=== PATIENT | female | born 1950 | race Caucasian/White ===

== ENCOUNTER 2017-12-24 05:24 | Inpatient (IN) | payer OTHER ==
--- NOTE | 2017-12-24 09:22 | HP ---
Admitting History and Physical - Admission History of Present Illness: 67 year old woman with enlarging abdominal aortic aneurysm. Growth of > 1 cm over past 18 months with diameter approaching 5 cm. patient requesting repair at this time. No pain. History Source: Patient Limitations to Obtaining History: No Limitations - Past Medical History Cardiovascular: Yes: HTN - Smoking History Smoking history: Former smoker Have you smoked in the past 12 months: No If you are a former smoker, when did you quit?: 2yrs - Alcohol/Substance Use Hx Alcohol Use: Yes (socially) Home Medications - Allergies Allergies/Adverse Reactions: Allergies Allergy/AdvReac Type Severity Reaction Status Date / Time amoxicillin [From Augmentin] Allergy "severe Verified 12/24/17 08:31 nausea" clavulanic acid Allergy "severe Verified 12/24/17 08:31 [From Augmentin] nausea" clindamycin [From Cleocin] Allergy "severe Verified 12/24/17 08:31 nausea" doxycycline Allergy "severe Verified 12/24/17 08:31 nausea" - Home Medications Home Medications: Ambulatory Orders Atenolol [Tenormin -] 50 mg PO DAILY 12/15/17 Atorvastatin Ca [Lipitor] 40 mg PO HS 12/15/17 Biotin 1 mg PO DAILY 12/15/17 Calcium Carbonate [Calcium] 500 mg PO DAILY 12/15/17 Hydrochlorothiazide [Hctz -] 25 mg PO DAILY 12/15/17 Losartan Potassium 50 mg PO DAILY 12/15/17 Multivitamin/Iron/Folic Acid [Centrum Adults Tablet] 1 each PO DAILY 12/15/17 [place]-3 Fatty Acids [[place]-3] 1,000 mg PO DAILY 12/15/17 Family Disease History - Family Disease History Family History: Unremarkable Physical Examination Vital Signs: Vital Signs Temperature 97.7 F 12/24/17 08:34 Pulse Rate 61 12/24/17 08:34 Respiratory Rate 16 12/24/17 08:34 Blood Pressure 155/96 12/24/17 08:34 O2 Sat by Pulse Oximetry (%) 96 12/24/17 08:34 Constitutional: Yes: No Distress Eyes: Yes: WNL HENT: Yes: WNL Neck: Yes: Supple Cardiovascular: Yes: Regular Rate and Rhythm Respiratory: Yes: Regular, CTA Bilaterally Gastrointestinal: Yes: Soft. No: Pulsatile Mass Extremities: Yes: WNL Edema: No Peripheral Pulses WNL: Yes Imaging - Results Cat Scan: Image Reviewed (Infrarenal AAA 4.6 cm with angulated neck) Problem List - Problems (1) AAA (abdominal aortic aneurysm) without rupture Assessment/Plan: Enlarging AAA in otherwise healthy 67 year old. Plan endovascular repair. Risks of surgery including, but not limited to, bleeding, infection, open surgery, renal injury, discussed. Code(s): I71.4 - ABDOMINAL AORTIC ANEURYSM, WITHOUT RUPTURE
[2017-12-24] MEDS ORDERED: MIDAZOLAM HCL 2 MG/2 ML SINGLE DOSE VIAL ONE ×2 (09:42→10:01)
[2017-12-24] MEDS ORDERED: VANCOMYCIN 1,000 MG VIAL (RESTRICTED TO ID ONLY) IVPB ONE (10:00)
[2017-12-24] MEDS ORDERED: PROPOFOL 20 ML ONE ×3 (10:37→11:41)
[2017-12-24] MEDS ORDERED: SUCCINYLCHOLINE CHLORIDE 200 MG/10 ML VIAL ONE (11:09)
--- NOTE | 2017-12-24 12:22 | OP ---
Operative Note - Note: Operative Date: 12/24/17 Pre-Operative Diagnosis: Abdominal aortic aneurysm Operation: Percutaneous endovascular repair of Abdominal Aortic Aneurysm Findings: Infrarenal AAA 4.6 cm. Accessory right renal artery to lower pole covered by graft Completion angiogram with no Type I endoleak Implants: Medtronic Endurant II 25 mm proximal, 10 mm right iliac, 13 mm left iliac Surgeon: Yayo Mosqueda Gear Generator Set Up Operator: Jatinder Savage Anesthesiologist/COURT CRIER: Trina Martinez MD Anesthesia: Fractional Estimated Blood Loss (mls): 150 Operative Report Dictated: Yes
[2017-12-24] MEDS ORDERED: D5-1/2NS+20 MEQ KCL - 20 MEQ/1,000 ML INFUS.BAG IV SCH (12:30)
[2017-12-24] MEDS ORDERED: LACTATED RINGERS SOLUTION 1,000 ML IV SCH (12:30)
--- NOTE | 2017-12-24 13:51 | SURG ---
Surgery Vp Foundation Note Vp Foundation: Jatinder Savage PA-C Date of Service: 12/24/17 Diagnosis: Infrarenal AAA Procedure: Percutaneous endovascular repair of Abdominal Aortic Aneurysm I was present for the entirety of the operative procedure. For further detail, please refer to operative report. Visit type - Case Type Case Type: Scheduled - New patient This patient is new to me today: Yes Date on this admission: 12/24/17
--- NOTE | 2017-12-24 14:54 | OP ---
DATE OF OPERATION: 12/24/2017 SURGEON: Yayo Mosqueda MD SUBSTATION SUPERINTENDENT: CANDIDA Greer PROCEDURE: Percutaneous endovascular repair of abdominal aortic aneurysm with modular stent graft and 2 docking limbs. PREOPERATIVE DIAGNOSIS: Infrarenal abdominal aortic aneurysm. POSTOPERATIVE DIAGNOSIS: Infrarenal abdominal aortic aneurysm. ANESTHESIA: Fractional. ANESTHESIOLOGIST: Trina Martinez MD OPERATIVE FINDINGS: There was an infrarenal abdominal aortic aneurysm with a maximum diameter of 4.6 cm. There was a single renal artery on the left and a main renal artery with an accessory lower pole renal artery on the right. Completion angiogram following stent placement showed no evidence of type I endoleak. There was good flow to both main renal arteries. The lower pole artery on the right was occluded by the stent graft. OPERATIVE PROCEDURE: Following routine patient identification, intravenous sedation was established. Both groins were prepped with ChloraPrep. A time-out was performed. Using real time duplex imaging, the common femoral arteries were identified. One percent lidocaine was infiltrated in the skin and subcutaneous tissues over the right common femoral artery and under ultrasound guidance, it was cannulated above the bifurcation in an area free of atherosclerotic plaque. A Micropuncture wire was passed proximally, a 5-Malaysian sheath exchanged into the vessel over the wire. A [employer] wire was then exchanged through the catheter and advanced into the iliac artery. A 6-Malaysian sheath was then placed. A double Perclose device was placed at the 10 o'clock and 2 o'clock positions, followed by an 8-Malaysian sheath. The Perclose devices were not tightened. The left femoral artery was then cannulated in an identical fashion, and a double Perclose placed as well, with an 8-Malaysian sheath. With the use of a Berenstein catheter, the wire was advanced through the left iliac artery into the abdominal aorta and then to the suprarenal aorta. The wire was advanced proximally and then a marking pigtail catheter advanced over the wire and left at the level of the renal arteries. The wire was removed. A power injector was used to perform angiography with digital technique, to identify the renal arteries and the iliac outflow bilaterally. An angled wire was then advanced proximally through the right femoral sheath with a catheter into the suprarenal aorta. The wire was then exchanged for a Lunderquist wire, which was advanced to the aortic arch. The patient was systemically heparinized. A Medtronic Endurant II stent graft main body with a proximal diameter of 25 mm was then prepared. It was exchanged over the wire in the right femoral artery and advanced under fluoroscopic guidance to the level of the renal arteries. Magnified views with correction of parallax were obtained and digital angiography repeated. With the renal arteries marked, the main body was deployed just distal to both renal arteries, which were at the same level on the angiogram. The graft was opened until the contralateral gate was freed. The top cap was then deployed. The wire was reinserted through the catheter in the left groin and then the pigtail was removed. Using a Platypi catheter, the gate was cannulated and the wire advanced proximally into the suprarenal aorta. The pigtail was replaced and used to spin within the graft to confirm intraluminal placement. An angiogram through the left femoral sheath was then performed to tuan the bifurcation of the iliac arteries. A left iliac extension limb was then exchanged over the wire and advanced and deployed to the bifurcation, with adequate overlap in the stent graft. The distal diameter of the limb was 13 mm. The catheter was removed and a 12-sheath placed over the wire into the iliac artery. The remainder of the main body was then deployed into the right iliac artery. The top cap was recaptured and the catheter was removed. A 16-Malaysian sheath was then advanced over the wire into the iliac artery. The marking catheter was replaced over the wire, and an angiogram through the sheath performed to tuan the bifurcation of the right iliac artery. Following this, a Reliant balloon was used to dilate the stent graft at the proximal neck, all juncture points and both iliac limbs. A completion angiogram was then performed with the power injector, with the above noted findings. No evidence of type I endoleak was seen. The catheters were removed. The sheaths were pulled back, and the Perclose sutures tightened over the wire. When hemostasis was deemed adequate, the wires were removed, and the sutures re-tightened and locked and cut. Both groins were closed in this manner. The subcutaneous tissues were then approximated with devices to seal the arteriotomies. The wires were removed, with further tightening of the sutures and locking of the sutures. The wounds were closed with subcuticular sutures of 4-0 Biosyn sutures and Dermabond glue on the skin. The patient was taken to the recovery area in stable condition. Jeferson ROMERO/[id number]
[2017-12-24] MEDS: ONDANSETRON 4 MG/2 ML VIAL IVPUSH PRN (15:59)
[2017-12-24] MEDS: oxyCODONE HCL 5 MG TABLET PO PRN ×2 (16:04→21:51)
[2017-12-24] MEDS: ACETAMINOPHEN 325 MG TABLET (FP) PO PRN (16:10)
--- NOTE | 2017-12-24 18:06 | CONSULT ---
Consultation: REQUESTING PROVIDER: Dr Mosqueda CONSULT REQUEST: We have been asked to medically evaluate this patient for post/ op abdominal aortic aneurysm repair. HISTORY OF PRESENT ILLNESS: Pt is a 67 y/o F with a pmh HLD and HTN, surgery on right foot, and tubal ligation 30+ years ago. Pt states she underwent an abdominal ultrasound in May of 2017 which revealed a 3.1 cm abdominal aortic aneurysm. Pt then traveled to [place] until October of this year when she underwent a follow up ultrasound which subsequently revealed an expanded diameter of 4.6 cm. Pt endorses she has smoked roughly 1 pack of cigarettes per day since she was 11 years old-quit 2 years ago. Denies cp, sob, crawley, nausea, dizziness, or vomiting. REVIEW OF SYSTEMS: CONSTITUTIONAL: Absent: fever, chills, diaphoresis, generalized weakness, malaise, loss of appetite, weight change HEENT: Absent: rhinorrhea, nasal congestion, throat pain, throat swelling, difficulty swallowing, mouth swelling, ear pain, eye pain, visual changes CARDIOVASCULAR: Absent: chest pain, syncope, palpitations, irregular heart rate, lightheadedness , peripheral edema RESPIRATORY: Absent: cough, shortness of breath, dyspnea with exertion, orthopnea, wheezing, stridor, hemoptysis GASTROINTESTINAL: Absent: abdominal pain, abdominal distension, nausea, vomiting, diarrhea, constipation, melena, hematochezia GENITOURINARY: Absent: dysuria, frequency, urgency, hesitancy, hematuria, flank pain, genital pain MUSCULOSKELETAL: C/o back pain. No pain at site of surgery. SKIN: abdominal incision site covered by bandage. HEMATOLOGIC/IMMUNOLOGIC: Absent: easy bleeding, easy bruising, lymphadenopathy, frequent infections ENDOCRINE: Absent: unexplained weight gain, unexplained weight loss, heat intolerance, cold intolerance NEUROLOGIC: Absent: headache, focal weakness or paresthesias, dizziness, unsteady gait, seizure, mental status changes, bladder or bowel incontinence PSYCHIATRIC: Absent: anxiety, depression, suicidal or homicidal ideation, hallucinations. PHYSICAL EXAMINATION Vital Signs - 24 hr 12/24/17 12/24/17 12/24/17 08:34 12:00 12:15 Temperature 97.7 F 97.2 F L Pulse Rate 61 45 L 44 L Respiratory 16 14 18 Rate Blood Pressure 155/96 136/96 150/72 O2 Sat by Pulse 96 94 L 96 Oximetry (%) 12/24/17 12/24/17 12/24/17 12:30 12:45 13:00 Temperature Pulse Rate 44 L 47 L 47 L Respiratory 18 16 18 Rate Blood Pressure 153/76 145/83 140/77 O2 Sat by Pulse 96 97 97 Oximetry (%) 12/24/17 12/24/17 12/24/17 13:15 13:30 13:45 Temperature Pulse Rate 46 L 46 L 45 L Respiratory 18 18 18 Rate Blood Pressure 127/74 126/65 122/60 O2 Sat by Pulse 99 98 98 Oximetry (%) 12/24/17 12/24/17 12/24/17 14:00 14:15 14:30 Temperature 98.0 F Pulse Rate 45 L 50 L 82 Respiratory 18 16 16 Rate Blood Pressure 124/74 130/99 146/72 O2 Sat by Pulse 99 98 95 Oximetry (%) 12/24/17 12/24/17 12/24/17 14:35 15:00 15:33 Temperature 7.5 F L 97.5 F L Pulse Rate 50 L 61 Respiratory 16 16 Rate Blood Pressure 139/90 149/84 O2 Sat by Pulse 97 Oximetry (%) 12/24/17 16:00 Temperature Pulse Rate 53 L Respiratory 16 Rate Blood Pressure 130/90 O2 Sat by Pulse Oximetry (%) GENERAL: Awake, alert, and fully oriented, in no acute distress. HEAD: Normal with no signs of trauma. EYES: Pupils equal, round and reactive to light, extraocular movements intact, sclera anicteric, conjunctiva clear. No lid lag. EARS, NOSE, THROAT: Ears normal, nares patent, oropharynx clear without exudates. Moist mucous membranes. NECK: Normal range of motion, supple without lymphadenopathy, JVD, or masses. LUNGS: Breath sounds equal, clear to auscultation bilaterally. No wheezes, and no crackles. No accessory muscle use. HEART: Regular rate and rhythm, normal S1 and S2 without murmur, rub or gallop. ABDOMEN: Soft, nontender, not distended, normoactive bowel sounds, no guarding, no rebound, no masses. No hepatomegaly or splenomegaly. MUSCULOSKELETAL: Normal range of motion at all joints. No bony deformities or tenderness. No CVA tenderness. UPPER EXTREMITIES: 2+ pulses, warm, well-perfused. No cyanosis. No clubbing. Cap refill <2 seconds. No peripheral edema. LOWER EXTREMITIES: 2+ pulses, warm, well-perfused. No calf tenderness. No peripheral edema. NEUROLOGICAL: Cranial nerves II-XII intact. Normal speech. Normal gait. PSYCHIATRIC: Cooperative. Good eye contact. Appropriate mood and affect. SKIN: Warm, dry, normal turgor, no rashes or lesions noted. Laboratory Results - last 24 hr 12/24/17 12/24/17 08:00 08:27 Blood Type O POSITIVE O POSITIVE Antibody Screen Negative Active Medications Generic Name Dose Route Start Last Admin Trade Name Freq PRN Reason Stop Dose Admin Acetaminophen 325 mg 12/24/17 12:42 12/24/17 16:10 Tylenol - PO 325 mg Q4H PRN Administration PAIN LEVEL 1-5 Atenolol 50 mg 12/25/17 10:00 Tenormin - PO DAILY [facility] Atorvastatin Calcium 40 mg 12/24/17 22:00 Lipitor - PO HS LORRI Fentanyl 50 mcg 12/24/17 12:17 12/24/17 13:45 Sublimaze Injection - IVPUSH 25 mcg [id number] PRN Administration PAIN-PACU ORDER X 4 DOSES ONLY Heparin Sodium (Porcine) 5,000 unit 12/24/17 22:00 Heparin - SQ BID LORRI Lactated Ringer's 1,000 mls @ 75 mls/hr 12/24/17 12:30 12/24/17 17:12 Lactated Ringers Solution IV Not Given ASDIR [facility] Potassium Chloride/Dextrose/Sod Cl 20 meq in 1,000 mls @ 100 mls/hr 12/24/17 12:30 12/24/17 14:35 D5-1/2ns+20 Meq Kcl - IV 100 mls/hr ASDIR LORRI Administration Losartan Potassium 50 mg 12/25/17 10:00 Cozaar - PO DAILY LORRI Ondansetron HCl 4 mg 12/24/17 12:17 12/24/17 15:59 Zofran Injection IVPUSH 4 mg Q6H PRN Administration NAUSEA AND/OR VOMITING Oxycodone HCl 5 mg 12/24/17 12:41 12/24/17 16:04 Roxicodone - PO 5 mg Q4H PRN Administration PAIN LEVEL 1-5 ASSESSMENT/PLAN: POD # 0 s/p Percutaneous endovascular repair of Abdominal Aortic Aneurysm Pain- Oxycodone 5 mg po q4h prn Acetaminophen 325 mg po q4h Nausea: Zofran Injection 4 mg iv push q6h HTN, HLD: Atorvastatin 40 mg po hs Losartan 50 mg po daily Atenolol 50 mg po daily Early ambulation FEN LR's 1,000 IV Monitor electrolytes Liquid Diet DVT ppx Heparin 5,000 U SQ BID SCD's Dispo: We will continue to follow the patient. Thank you for this consultative opportunity. Visit type - Emergency Visit Emergency Visit: No - New Patient This patient is new to me today: Yes Date on this admission: 12/24/17 - Critical Care Critical Care patient: Yes Total Critical Care Time (in minutes): 35 Critical Care Statement: The care of this patient involved high complexity decision making to prevent further life threatening deterioration of the patient 's condition and/or to evaluate & treat vital organ system(s) failure or risk of failure.
[2017-12-24] MEDS: HEPARIN NA (PORCINE) 5,000 UNITS/ML 1ML VIAL SQ SCH (21:52)
[2017-12-24] MEDS ORDERED: ATORVASTATIN CA 40 MG TABLET (FP) PO SCH (22:00)
[2017-12-25] MEDS: oxyCODONE HCL 5 MG TABLET PO PRN ×4 (01:44→22:24)
[2017-12-25 06:36] LABS: HEMATOCRIT 35.3 % (32.4-45.2); HEMOGLOBIN 12.2 GM/dL (10.7-15.3); MCH 33.3 pg (25.7-33.7); MCHC 34.5 g/dl (32.0-36.0); MEAN CELL VOLUME 96.6 fl (80-96); MEAN PLT VOLUME 9.6 fl (7.5-11.1); PLATELET COUNT 133 K/MM3 (134-434); RBC 3.66 M/mm3 (3.60-5.2); RDW 12.4 % (11.6-15.6); WHITE BLOOD COUNT 9.2 K/mm3 (4.0-10.0)
[2017-12-25 06:56] LABS: CHLORIDE 105 mmol/L (98-107); POTASSIUM 4.1 mmol/L (3.5-5.1); SODIUM 140 mmol/L (136-145)
[2017-12-25 07:00] LABS: ANION GAP 5 (8-16); BLOOD UREA NITROGEN 6 mg/dL (7-18); CALCIUM 8.2 mg/dL (8.5-10.1); CO2 30 mmol/L (21-32); CREATININE 0.5 mg/dL (0.55-1.02); GLUCOSE,RANDOM 119 mg/dL (74-106); MAGNESIUM 1.8 mg/dL (1.8-2.4); PHOSPHOROUS 2.5 mg/dL (2.5-4.9)
[2017-12-25] MEDS: ACETAMINOPHEN 325 MG TABLET (FP) PO PRN ×2 (07:38→22:25)
[2017-12-25] MEDS: ONDANSETRON 4 MG/2 ML VIAL IVPUSH PRN (07:43)
--- NOTE | 2017-12-25 08:57 | PN ---
Progress Note (short form) - Note Progress Note: C/o back pain VSS Abd soft, non-tender Groins dry, no swelling Feet warm, palpable DP Labs WNL Imp: S/p EVAR, no major issues. Plan: OOB D/C Diogo naik-goldy Advance diet and activity Transfer to floor Problem List - Problems (1) AAA (abdominal aortic aneurysm) without rupture Code(s): I71.4 - ABDOMINAL AORTIC ANEURYSM, WITHOUT RUPTURE
--- NOTE | 2017-12-25 09:12 | PN ---
Progress Note (short form) - Note Progress Note: Anesthesia POD#1 S/P Endovascular AAA Repair under MAC VSS,Started oral food,nausea yesterday, got better after medication. No other complications seen. Lise Kennedy MD.
[2017-12-25] MEDS ORDERED: LOSARTAN POTASSIUM 50 MG TABLET (FP) PO SCH (10:00)
[2017-12-25] MEDS: HEPARIN NA (PORCINE) 5,000 UNITS/ML 1ML VIAL SQ SCH ×2 (10:00→22:00)
--- NOTE | 2017-12-25 11:19 | PN ---
Physical Exam: SUBJECTIVE: Patient seen and examined today in icu. POD #1. Pt c/o back pain, headache, and nausea. Debies CP or SOB. OBJECTIVE: Vital Signs Period Temp Pulse Resp BP Sys/Barraza Pulse Ox Last 24 Hr 97.2 F-98.9 F 44-82 14-21 110-153/60-99 94-99 GENERAL: AAOx3 HEAD: Normal with no signs of trauma. EYES: EOMI ENT: MMM NECK: Trachea midline, full range of motion, supple. LUNGS: CTA B/L HEART: RRR ABDOMEN: ND, NT, No HSM. EXTREMITIES: No CCE NEUROLOGICAL: no neuro deficits PSYCH: Normal mood, normal affect. SKIN: bruising lower abdomen b/l Laboratory Results - last 24 hr 12/25/17 12/25/17 05:30 05:30 WBC 9.2 RBC 3.66 Hgb 12.2 Hct 35.3 D MCV 96.6 H MCH 33.3 MCHC 34.5 RDW 12.4 Plt Count 133 L D MPV 9.6 Sodium 140 Potassium 4.1 Chloride 105 Carbon Dioxide 30 Anion Gap 5 L BUN 6 L Creatinine 0.5 L Creat Clearance w eGFR > 60 Random Glucose 119 H Calcium 8.2 L Phosphorus 2.5 Magnesium 1.8 Active Medications Generic Name Dose Route Start Last Admin Trade Name Freq PRN Reason Stop Dose Admin Acetaminophen 325 mg 12/24/17 12:42 12/25/17 07:38 Tylenol - PO 325 mg Q4H PRN Administration PAIN LEVEL 1-5 Atenolol 50 mg 12/25/17 10:00 Tenormin - PO DAILY [facility] Atorvastatin Calcium 40 mg 12/24/17 22:00 12/24/17 21:52 Lipitor - PO 40 mg HS LORRI Administration Fentanyl 50 mcg 12/24/17 12:17 12/24/17 13:45 Sublimaze Injection - IVPUSH 25 mcg [id number] PRN Administration PAIN-PACU ORDER X 4 DOSES ONLY Heparin Sodium (Porcine) 5,000 unit 12/24/17 22:00 12/24/17 21:52 Heparin - SQ 5,000 unit BID LORRI Administration Losartan Potassium 50 mg 12/25/17 10:00 Cozaar - PO DAILY [facility]RI Oxycodone HCl 5 mg 12/24/17 12:41 12/25/17 07:36 Roxicodone - PO 5 mg Q4H PRN Administration PAIN LEVEL 1-5 ASSESSMENT/PLAN: POD #1: abdominal aortic aneurysm repair. Pain- Oxycodone 5 mg po q4h prn Acetaminophen 325 mg po q4h Nausea: Zofran Injection 4 mg iv push q6h HTN, HLD: Atorvastatin 40 mg po hs Losartan 50 mg po daily Atenolol 50 mg po daily Gaines catheter d/c A-Line d/c Diet advanced Transfer to floor DVT ppx Heparin 5,000 U SQ BID SCD's FEN No fluids Monitor electrolytes Regular diet Dispo Pt being transferred to med-surg. Visit type - Emergency Visit Emergency Visit: No - New Patient This patient is new to me today: Yes Date on this admission: 12/25/17 - Critical Care Critical Care patient: Yes Total Critical Care Time (in minutes): 35 Critical Care Statement: The care of this patient involved high complexity decision making to prevent further life threatening deterioration of the patient 's condition and/or to evaluate & treat vital organ system(s) failure or risk of failure.
[2017-12-25] MEDS: ATENOLOL 50 MG TABLET (FP) PO SCH ×2 (11:32→12:00)
--- NOTE | 2017-12-25 11:33 | PN ---
Teaching Attending Note Name of Resident: Ramy Gilbert ATTENDING PHYSICIAN STATEMENT I saw and evaluated the patient. I reviewed the resident's note and discussed the case with the resident. I agree with the resident's findings and plan as documented. SUBJECTIVE: Pt seen and examined in the ICU. s/p EVAR. Some headache and nausea overnight improved with meds. Back pain also improved with meds. OBJECTIVE: Vital Signs Period Temp Pulse Resp BP Sys/Barraza Pulse Ox Last 24 Hr 97.2 F-98.9 F 44-82 14-21 110-153/60-99 94-99 Intake & Output 12/22/17 12/23/17 12/24/17 12/25/17 23:59 23:59 23:59 23:59 Intake Total 1940 1690 Output Total 1540 700 Balance 400 990 Weight 68.039 kg 69.127 kg Gen: NAD at rest Heart: RRR Lung: decreased breath sounds at the bases Abd: soft, nontender Ext: no edema, groin ecchymosis CBC, BMP 12/25/17 05:30 12/25/17 05:30 Active Medications Acetaminophen (Tylenol -) 325 mg PO Q4H PRN PRN Reason: PAIN LEVEL 1-5 Last Admin: 12/25/17 07:38 Dose: 325 mg Atenolol (Tenormin -) 50 mg PO DAILY [facility] Atorvastatin Calcium (Lipitor -) 40 mg PO HS [facility] Last Admin: 12/24/17 21:52 Dose: 40 mg Fentanyl (Sublimaze Injection -) 50 mcg IVPUSH [id number] PRN PRN Reason: PAIN-PACU ORDER X 4 DOSES ONLY Last Admin: 12/24/17 13:45 Dose: 25 mcg Heparin Sodium (Porcine) (Heparin -) 5,000 unit SQ BID LORRI Last Admin: 12/24/17 21:52 Dose: 5,000 unit Losartan Potassium (Cozaar -) 50 mg PO DAILY [facility] Oxycodone HCl (Roxicodone -) 5 mg PO Q4H PRN PRN Reason: PAIN LEVEL 1-5 Last Admin: 12/25/17 07:36 Dose: 5 mg ASSESSMENT AND PLAN: AAA s/p EVAR POD 1 HTN Hyperlipidemia - pain control - monitor H/H - incentive spirometry - DVT prophylaxis - can monitor on floor
[2017-12-25] MEDS ORDERED: ONDANSETRON *ODT* 4 MG TABLET SL PRN (14:28)
[2017-12-25] MEDS ORDERED: ONDANSETRON 4 MG/2 ML VIAL ONE (14:33)
[2017-12-25] MEDS: DRONABINOL 2.5 MG CAPSULE PO SCH (15:08)
--- NOTE | 2017-12-25 18:43 | PN ---
Progress Note (short form) - Note Progress Note: Pt spike fever of 101.9 and complaining of worsening back pain. stat CBC, CMP, Blood cultures, Urine cultures, CXR One dose of Vancomycin 1000mg IV and a dose of azactam 1gm IV given after cultures taken Bedside u/s performed, partial fast exam, both flanks viewed with no gross abnormalities to any local structures. No gross blood accumulation noted. Pain is most likely caused by migration of post-op edema to the flanks in addition to chronic back pain exacerbated by positioning during procedure. Discussed with Vascular surgery, awaiting results of CMP, if creatinine normal, will order stat CTA Abdomen and Pelvis.
[2017-12-25] MEDS ORDERED: ACETAMINOPHEN 1000 MG/100 ML VIAL (NON FORMULARY) IVPB ONE (19:00)
[2017-12-25] MEDS ORDERED: AZTREONAM 1 GM in DEXTROSE 5%-WATER - 50 ML IVPB ONE (19:00)
[2017-12-25] MEDS ORDERED: VANCOMYCIN 1,000 MG in DEXTROSE 5%-WATER - 250 ML IVPB ONE (19:00)
[2017-12-25 19:38] LABS: BASO % 0.3 % (0-2.0); EOS % 0.4 % (0-4.5); HEMATOCRIT 35.8 % (32.4-45.2); HEMOGLOBIN 12.1 GM/dL (10.7-15.3); LYMPH % 13.7 % (8-40); MCH 32.5 pg (25.7-33.7); MCHC 33.9 g/dl (32.0-36.0); MEAN CELL VOLUME 95.9 fl (80-96); MONO % 9.8 % (3.8-10.2); NEUT % 75.8 % (42.8-82.8); PLATELET COUNT 126 K/MM3 (134-434); RBC 3.74 M/mm3 (3.60-5.2); RDW 12.8 % (11.6-15.6); WHITE BLOOD COUNT 8.7 K/mm3 (4.0-10.0)
[2017-12-25 20:41] LABS: ANION GAP 9 (8-16); BLOOD UREA NITROGEN 5 mg/dL (7-18); CALCIUM 8.1 mg/dL (8.5-10.1); CHLORIDE 105 mmol/L (98-107); CO2 25 mmol/L (21-32); CREATININE 0.6 mg/dL (0.55-1.02); GLUCOSE,RANDOM 134 mg/dL (74-106); POTASSIUM 3.5 mmol/L (3.5-5.1); SODIUM 139 mmol/L (136-145)
[2017-12-25 20:50] LABS: ALBUMIN 2.9 g/dl (3.4-5.0); ALK PHOS 58 U/L (45-117); ANION GAP 10 (8-16); BILIRUBIN,TOTAL 0.8 mg/dL (0.2-1.0); BLOOD UREA NITROGEN 5 mg/dL (7-18); CALCIUM 8.1 mg/dL (8.5-10.1); CHLORIDE 105 mmol/L (98-107); CO2 25 mmol/L (21-32); CREATININE 0.6 mg/dL (0.55-1.02); GLUCOSE,RANDOM 133 mg/dL (74-106); POTASSIUM 3.5 mmol/L (3.5-5.1); SGOT/AST 20 U/L (15-37); SGPT/ALT 23 U/L (12-78); SODIUM 140 mmol/L (136-145); TOT PROT 5.6 g/dl (6.4-8.2)
[2017-12-25] MEDS: ATORVASTATIN CA 40 MG TABLET (FP) PO SCH (22:00)
[2017-12-25] MEDS ORDERED: oxyCODONE HCL 5 MG TABLET PO ONE (22:19)
[2017-12-25] MEDS ORDERED: SODIUM CHLORIDE 1,000 ML IV SCH (23:30)
[2017-12-25] MEDS ORDERED: SODIUM CHLORIDE 500 ML IV STA (23:30)
[2017-12-26 06:39] LABS: BASO % 0.5 % (0-2.0); EOS % 1.4 % (0-4.5); HEMATOCRIT 32.4 % (32.4-45.2); HEMOGLOBIN 11.1 GM/dL (10.7-15.3); LYMPH % 16.7 % (8-40); MCH 33.1 pg (25.7-33.7); MCHC 34.4 g/dl (32.0-36.0); MEAN CELL VOLUME 96.1 fl (80-96); NEUT % 70.4 % (42.8-82.8); PLATELET COUNT 113 K/MM3 (134-434); RBC 3.37 M/mm3 (3.60-5.2); RDW 12.4 % (11.6-15.6); WHITE BLOOD COUNT 8.3 K/mm3 (4.0-10.0)
[2017-12-26 06:51] LABS: ALBUMIN 2.5 g/dl (3.4-5.0); ANION GAP 7 (8-16); BLOOD UREA NITROGEN 5 mg/dL (7-18); CALCIUM 7.6 mg/dL (8.5-10.1); CHLORIDE 109 mmol/L (98-107); CO2 27 mmol/L (21-32); GLUCOSE,RANDOM 117 mg/dL (74-106); MAGNESIUM 1.7 mg/dL (1.8-2.4); POTASSIUM 3.8 mmol/L (3.5-5.1); SODIUM 143 mmol/L (136-145)
[2017-12-26 06:56] LABS: ALK PHOS 56 U/L (45-117); BILIRUBIN,TOTAL 0.7 mg/dL (0.2-1.0); CREATININE 0.6 mg/dL (0.55-1.02); PHOSPHOROUS 1.9 mg/dL (2.5-4.9); SGOT/AST 24 U/L (15-37); SGPT/ALT 22 U/L (12-78); TOT PROT 5.1 g/dl (6.4-8.2)
[2017-12-26] MEDS: oxyCODONE HCL 5 MG TABLET PO PRN ×3 (07:46→18:57)
[2017-12-26] MEDS ORDERED: DOCUSATE SODIUM 100 MG CAPSULE (FP) PO PRN (07:50)
--- NOTE | 2017-12-26 08:11 | PN ---
Progress Note (short form) - Note Progress Note: 67yo F s/p AAA repair, pt seen sitting up in chair continues to complain of lower back pain. Pt spike isolated fever yesterday, had fever workup with was unremarkable, including CTA which mostly showed postop changes. Last Vital Signs Temp Pulse Resp BP Pulse Ox 98.8 F 68 20 113/66 95 12/26/17 06:00 12/26/17 06:00 12/26/17 06:00 12/26/17 06:00 12/25/17 20:12 CBC, BMP 12/26/17 05:30 12/26/17 05:30 Abd soft, non-tender Groins dry, no swelling Feet warm, palpable DP Problem List - Problems (1) AAA (abdominal aortic aneurysm) without rupture Assessment/Plan: Imp: S/p EVAR, no major issues. Plan: OOB Advance diet and activity Transfer to floor Code(s): I71.4 - ABDOMINAL AORTIC ANEURYSM, WITHOUT RUPTURE
[2017-12-26] MEDS: HEPARIN NA (PORCINE) 5,000 UNITS/ML 1ML VIAL SQ SCH ×2 (09:24→21:34)
[2017-12-26] MEDS ORDERED: ATENOLOL 50 MG TABLET (FP) PO SCH (10:00)
[2017-12-26] MEDS ORDERED: LOSARTAN POTASSIUM 50 MG TABLET (FP) PO SCH (10:00)
[2017-12-26] MEDS ORDERED: ONDANSETRON 4 MG/2 ML VIAL ONE (11:21)
[2017-12-26] MEDS: DRONABINOL 2.5 MG CAPSULE PO SCH (11:43)
--- NOTE | 2017-12-26 11:54 | PN ---
Teaching Attending Note Name of Resident: Arvin Tian ATTENDING PHYSICIAN STATEMENT I saw and evaluated the patient. I reviewed the resident's note and discussed the case with the resident. I agree with the resident's findings and plan as documented. SUBJECTIVE: Patient seen and examined in the ICU. POD #2 EVAR. Reports some back pain. No CP or SOB. Intake & Output 12/23/17 12/24/17 12/25/17 12/26/17 23:59 23:59 23:59 23:59 Intake Total 1940 1910 1950 Output Total 1540 900 Balance 400 1010 1950 Weight 150 lb 152 lb 6.4 oz 151 lb 3.2 oz Last Vital Signs Temp Pulse Resp BP Pulse Ox 98.7 F 62 17 120/73 97 12/26/17 08:00 12/26/17 10:00 12/26/17 10:00 12/26/17 10:00 12/26/17 08:31 Active Medications Acetaminophen (Tylenol -) 325 mg PO Q4H PRN PRN Reason: PAIN LEVEL 1-5 Last Admin: 12/25/17 22:25 Dose: 325 mg Atenolol (Tenormin -) 50 mg PO DAILY [facility] Last Admin: 12/26/17 09:23 Dose: 50 mg Atorvastatin Calcium (Lipitor -) 40 mg PO HS [facility] Last Admin: 12/25/17 22:00 Dose: 40 mg Docusate Sodium (Colace -) 100 mg PO BID PRN PRN Reason: CONSTIPATION Last Admin: 12/26/17 09:23 Dose: 100 mg Heparin Sodium (Porcine) (Heparin -) 5,000 unit SQ BID [facility] Last Admin: 12/26/17 09:24 Dose: 5,000 unit Losartan Potassium (Cozaar -) 50 mg PO DAILY [facility] Last Admin: 12/26/17 09:23 Dose: 50 mg Ondansetron HCl (Zofran Odt -) 8 mg SL Q8H PRN PRN Reason: NAUSEA Last Admin: 12/25/17 17:58 Dose: 8 mg Oxycodone HCl (Roxicodone -) 5 mg PO Q4H PRN PRN Reason: PAIN LEVEL 6-10 Last Admin: 12/26/17 07:46 Dose: 5 mg Gen: NAD at rest Heart: RRR Lung: decreased breath sounds at the bases Abd: soft, nontender Ext: no edema, groin ecchymosis Laboratory Results - last 24 hr 12/25/17 12/25/17 12/25/17 11:46 19:10 19:10 WBC 8.7 RBC 3.74 Hgb 12.1 Hct 35.8 MCV 95.9 MCH 32.5 MCHC 33.9 RDW 12.8 Plt Count 126 L MPV 10.0 Absolute Neuts (auto) 6.6 Neutrophils % 75.8 D Lymphocytes % 13.7 D Monocytes % 9.8 Eosinophils % 0.4 D Basophils % 0.3 Nucleated RBC % 0 Sodium 139 Potassium 3.5 Chloride 105 Carbon Dioxide 25 Anion Gap 9 BUN 5 L Creatinine 0.6 Creat Clearance w eGFR > 60 POC Glucometer [phone] Random Glucose 134 H Calcium 8.1 L Phosphorus Magnesium Total Bilirubin AST ALT Alkaline Phosphatase Total Protein Albumin 12/25/17 12/26/17 12/26/17 19:10 05:30 05:30 WBC 8.3 RBC 3.37 L Hgb 11.1 Hct 32.4 MCV 96.1 H MCH 33.1 MCHC 34.4 RDW 12.4 Plt Count 113 L MPV 10.0 Absolute Neuts (auto) 5.9 Neutrophils % 70.4 Lymphocytes % 16.7 D Monocytes % 11.0 H Eosinophils % 1.4 D Basophils % 0.5 Nucleated RBC % 0 Sodium 140 143 Potassium 3.5 3.8 Chloride 105 109 H Carbon Dioxide 25 27 Anion Gap 10 7 L BUN 5 L 5 L Creatinine 0.6 0.6 Creat Clearance w eGFR > 60 > 60 POC Glucometer Random Glucose 133 H 117 H Calcium 8.1 L 7.6 L Phosphorus 1.9 L Magnesium 1.7 L Total Bilirubin 0.8 0.7 AST 20 24 ALT 23 22 Alkaline Phosphatase 58 56 Total Protein 5.6 L 5.1 L Albumin 2.9 L 2.5 L ASSESSMENT AND PLAN: AAA s/p EVAR POD 2 HTN Hyperlipidemia - pain control - monitor H/H - incentive spirometry - DVT prophylaxis - can monitor on floor / DC planning Dr Tompkins
[2017-12-26 12:43] VITALS: BMI 28.5
[2017-12-26] MEDS: ACETAMINOPHEN 325 MG TABLET (FP) PO PRN ×2 (12:45→17:12)
[2017-12-26] MEDS ORDERED: ONDANSETRON 4 MG/2 ML VIAL IVPUSH PRN (12:56)
[2017-12-26] MEDS ORDERED: CALCIUM CARBONATE 650 MG TABLET PO PRN (12:59)
[2017-12-26] MEDS ORDERED: CALCIUM CARBONATE 650 MG TABLET PO ONE (13:04)
[2017-12-26] MEDS ORDERED: PT OWN MED DRAWER 7, Y5N ONE (14:51)
--- NOTE | 2017-12-26 15:02 | PN ---
Progress Note (short form) - Note Progress Note: POD 2 Feels much better today. Afebrile Abd soft Groins without swelling CTA no endoleak, good perfusion to both kidneys. Cr 0.6 Stable Increase activity If no new problems, home tomorrow. Problem List - Problems (1) AAA (abdominal aortic aneurysm) without rupture Code(s): I71.4 - ABDOMINAL AORTIC ANEURYSM, WITHOUT RUPTURE
--- NOTE | 2017-12-26 17:31 | PN ---
Physical Exam: SUBJECTIVE: Patient seen and examined this am in icu. C/o back pain, headache and nausea. Also experienced brief period of chills. Denies cp or sob. OBJECTIVE: Vital Signs Period Temp Pulse Resp BP Sys/Barraza Pulse Ox Last 24 Hr 98.7 F-101.9 F 54-84 13-20 84-139/47-85 95-97 GENERAL: AAOX3. C/o back pain, nausea. HEAD: Normal with no signs of trauma. EYES: eomi. ENT: WNL NECK: Trachea midline, full range of motion, supple. LUNGS: CTA B/L. HEART: -m/r/g, tachy ABDOMEN: Soft, nt, nd, no hsm. EXTREMITIES: well perfused NEUROLOGICAL: no neuro deficits PSYCH: Normal mood, normal affect. SKIN: Warm, mosit. Laboratory Results - last 24 hr 12/25/17 12/25/17 12/25/17 19:10 19:10 19:10 WBC 8.7 RBC 3.74 Hgb 12.1 Hct 35.8 MCV 95.9 MCH 32.5 MCHC 33.9 RDW 12.8 Plt Count 126 L MPV 10.0 Absolute Neuts (auto) 6.6 Neutrophils % 75.8 D Lymphocytes % 13.7 D Monocytes % 9.8 Eosinophils % 0.4 D Basophils % 0.3 Nucleated RBC % 0 Sodium 139 140 Potassium 3.5 3.5 Chloride 105 105 Carbon Dioxide 25 25 Anion Gap 9 10 BUN 5 L 5 L Creatinine 0.6 0.6 Creat Clearance w eGFR > 60 > 60 Random Glucose 134 H 133 H Calcium 8.1 L 8.1 L Phosphorus Magnesium Total Bilirubin 0.8 AST 20 ALT 23 Alkaline Phosphatase 58 Total Protein 5.6 L Albumin 2.9 L 12/26/17 12/26/17 05:30 05:30 WBC 8.3 RBC 3.37 L Hgb 11.1 Hct 32.4 MCV 96.1 H MCH 33.1 MCHC 34.4 RDW 12.4 Plt Count 113 L MPV 10.0 Absolute Neuts (auto) 5.9 Neutrophils % 70.4 Lymphocytes % 16.7 D Monocytes % 11.0 H Eosinophils % 1.4 D Basophils % 0.5 Nucleated RBC % 0 Sodium 143 Potassium 3.8 Chloride 109 H Carbon Dioxide 27 Anion Gap 7 L BUN 5 L Creatinine 0.6 Creat Clearance w eGFR > 60 Random Glucose 117 H Calcium 7.6 L Phosphorus 1.9 L Magnesium 1.7 L Total Bilirubin 0.7 AST 24 ALT 22 Alkaline Phosphatase 56 Total Protein 5.1 L Albumin 2.5 L Active Medications Generic Name Dose Route Start Last Admin Trade Name Freq PRN Reason Stop Dose Admin Acetaminophen 325 mg 12/25/17 16:57 12/26/17 17:12 Tylenol - PO 325 mg Q4H PRN Administration PAIN LEVEL 1-5 Atenolol 50 mg 12/26/17 10:00 12/26/17 09:23 Tenormin - PO 50 mg DAILY LORRI Administration Atorvastatin Calcium 40 mg 12/25/17 22:00 12/25/17 22:00 Lipitor - PO 40 mg HS LORRI Administration Docusate Sodium 100 mg 12/26/17 07:50 12/26/17 09:23 Colace - PO 100 mg BID PRN Administration CONSTIPATION Heparin Sodium (Porcine) 5,000 unit 12/25/17 22:00 12/26/17 09:24 Heparin - SQ 5,000 unit BID LORRI Administration Losartan Potassium 50 mg 12/26/17 10:00 12/26/17 09:23 Cozaar - PO 50 mg DAILY LORRI Administration Ondansetron HCl 4 mg 12/26/17 12:56 12/26/17 12:00 Zofran Injection IVPUSH 4 mg Q8H PRN Administration NAUSEA Oxycodone HCl 5 mg 12/25/17 16:57 12/26/17 15:06 Roxicodone - PO 5 mg Q4H PRN Administration PAIN LEVEL 6-10 ASSESSMENT/PLAN: POD #2: abdominal aortic aneurysm repair. Pain- Oxycodone 5 mg po q4h prn Acetaminophen 325 mg po q4h Nausea: Zofran Injection 4 mg iv push q6h HTN, HLD: Atorvastatin 40 mg po hs Losartan 50 mg po daily Atenolol 50 mg po daily DVT ppx Heparin 5,000 U SQ BID SCD's FEN No fluids Monitor electrolytes Regular diet Dispo Pt transferred to med-surg. Visit type - Emergency Visit Emergency Visit: No - New Patient This patient is new to me today: No - Critical Care Critical Care patient: Yes Total Critical Care Time (in minutes): 35 Critical Care Statement: The care of this patient involved high complexity decision making to prevent further life threatening deterioration of the patient 's condition and/or to evaluate & treat vital organ system(s) failure or risk of failure.
[2017-12-26] MEDS: ATORVASTATIN CA 40 MG TABLET (FP) PO SCH (21:34)
[2017-12-26] MEDS ORDERED: MAG HYDROX/AL HYDROX/SIMETH 30 ML UNIT-DOSE CUP PO ONE (22:15)
[2017-12-27] MEDS: oxyCODONE HCL 5 MG TABLET PO PRN ×3 (02:24→13:40)
[2017-12-27] MEDS ORDERED: ACETAMINOPHEN 325 MG TABLET (FP) PO PRN (07:35)
[2017-12-27] MEDS ORDERED: ONDANSETRON 4 MG/2 ML VIAL IVPUSH PRN (07:35)
[2017-12-27] MEDS ORDERED: DOCUSATE SODIUM 100 MG CAPSULE (FP) PO PRN (07:35)
[2017-12-27 07:49] LABS: ALBUMIN 2.6 g/dl (3.4-5.0); ANION GAP 7 (8-16); BILIRUBIN,TOTAL 0.6 mg/dL (0.2-1.0); BLOOD UREA NITROGEN 5 mg/dL (7-18); CALCIUM 8.1 mg/dL (8.5-10.1); CHLORIDE 102 mmol/L (98-107); CO2 29 mmol/L (21-32); CREATININE 0.5 mg/dL (0.55-1.02); GLUCOSE,RANDOM 113 mg/dL (74-106); MAGNESIUM 1.9 mg/dL (1.8-2.4); PHOSPHOROUS 1.7 mg/dL (2.5-4.9); POTASSIUM 3.8 mmol/L (3.5-5.1); SGOT/AST 24 U/L (15-37); SGPT/ALT 30 U/L (12-78); SODIUM 138 mmol/L (136-145)
[2017-12-27 07:50] LABS: ALK PHOS 87 U/L (45-117); BASO % 0.6 % (0-2.0); HEMATOCRIT 32.5 % (32.4-45.2); HEMOGLOBIN 11.1 GM/dL (10.7-15.3); LYMPH % 24.5 % (8-40); MCH 32.7 pg (25.7-33.7); MCHC 34.3 g/dl (32.0-36.0); MEAN CELL VOLUME 95.3 fl (80-96); MEAN PLT VOLUME 10.1 fl (7.5-11.1); MONO % 11.7 % (3.8-10.2); NEUT % 61.2 % (42.8-82.8); PLATELET COUNT 127 K/MM3 (134-434); RBC 3.41 M/mm3 (3.60-5.2); RDW 12.6 % (11.6-15.6); TOT PROT 5.5 g/dl (6.4-8.2); WHITE BLOOD COUNT 8.4 K/mm3 (4.0-10.0)
[2017-12-27 09:53] VITALS: BP 103/56; PULSE 70; TEMP 100
[2017-12-27] MEDS ORDERED: ATENOLOL 50 MG TABLET (FP) PO SCH (10:00)
[2017-12-27] MEDS ORDERED: LOSARTAN POTASSIUM 50 MG TABLET (FP) PO SCH (10:00)
[2017-12-27] MEDS ORDERED: HEPARIN NA (PORCINE) 5,000 UNITS/ML 1ML VIAL SQ SCH (10:00)
--- NOTE | 2017-12-27 13:04 | PN ---
Progress Note (short form) - Note Progress Note: VSS Abd soft Stable Home Problem List - Problems (1) AAA (abdominal aortic aneurysm) without rupture Code(s): I71.4 - ABDOMINAL AORTIC ANEURYSM, WITHOUT RUPTURE
[2017-12-27] MEDS ORDERED: ATORVASTATIN CA 40 MG TABLET (FP) PO SCH (22:00)
== END 2017-12-27 14:17 | disposition home or self-care (01) | DRG 269 ==
LOC: JSAMEDAYSX 05:24 → EDSTATUS 10:00 → JICU 14:52 → J8W 12-26 16:55
PROVIDERS: ADMIT Surgery; ATTEND Surgery
PROC: 04V03DZ Restriction of Abdominal Aorta with Intraluminal Device, Percutaneous Approach (ICD-10-PCS; principal; 2017-12-24 10:00)
DX: I71.4 Abdominal aortic aneurysm, without rupture (principal); R50.82 Postprocedural fever; E78.5 Hyperlipidemia, unspecified; R11.0 Nausea; M54.9 Dorsalgia, unspecified; Z87.891 Personal history of nicotine dependence
CPT/HCPCS: 36415; 71045-TC-FY; 74174-TC; 76000-TC-FY; 80048; 80053; 82962; 83735; 84100; 85025; 85027; 86850; 86900; 86901; 87040; 87086; 94760; 97116-GP; 97161-GP; J0131; J1644; J7030; Q0162

== ENCOUNTER 2019-03-23 13:50 | Emergency (ER) | payer OTHER ==
[2019-03-23 13:56] VITALS: TEMP 98.1; BMI 24.7
[2019-03-23] MEDS ORDERED: methylPREDNISolone NA SUCC 125 MG/2 ML VIAL ONE (13:59)
[2019-03-23] MEDS ORDERED: ALBUTEROL SO4 2.5/IPRATROPIUM 0.5 INH SOL 3 ML VIAL.NEB. NEB ONE ×2 (13:59)
[2019-03-23] MEDS ORDERED: methylPREDNISolone NA SUCC 125 MG/2 ML VIAL IVPUSH ONE (13:59)
--- NOTE | 2019-03-23 14:12 | PDOC ---
History of Present Illness - General Chief Complaint: Wheezing Stated Complaint: Shortness of Breath Time Seen by Provider: 03/23/19 14:00 History Source: Patient - History of Present Illness Initial Comments: 03/23/19 14:14 68 yo F PMH AAA s/p repair, HTN, HLD, COPD, presenting with SOB. Patient states that her SOB began last night, associated with cough productive of "foam", has been getting worse since then despite taking her home COPD medication and trying her inhaler. Also complains that it "feels like an elephant is sitting on my chest", making it difficult to get full breaths. Denies recent travel, sick contacts, [place], N/V, fevers/chills. Past History - Past Medical History Allergies/Adverse Reactions: Allergies Allergy/AdvReac Type Severity Reaction Status Date / Time amoxicillin [From Augmentin] Allergy "severe Verified 12/24/17 08:31 nausea" clavulanic acid Allergy "severe Verified 12/24/17 08:31 [From Augmentin] nausea" clindamycin [From Cleocin] Allergy "severe Verified 12/24/17 08:31 nausea" doxycycline Allergy "severe Verified 12/24/17 08:31 nausea" Home Medications: Ambulatory Orders Atenolol [Tenormin -] 50 mg PO DAILY 12/15/17 Atorvastatin Ca [Lipitor] 40 mg PO HS 12/15/17 Biotin 1 mg PO DAILY 12/15/17 Calcium Carbonate [Calcium] 500 mg PO DAILY 12/15/17 Hydrochlorothiazide [Hctz -] 25 mg PO DAILY 12/15/17 Losartan Potassium 50 mg PO DAILY 12/15/17 Multivitamin/Iron/Folic Acid [Centrum Adults Tablet] 1 each PO DAILY 12/15/17 Sunshine-3 Fatty Acids [Sunshine-3] 1,000 mg PO DAILY 12/15/17 Prednisone [Deltasone] 40 mg PO DAILY 5 Days #10 tablet 03/23/19 Anemia: No Asthma: No Cancer: No Cardiac Disorders: No CVA: No COPD: No CHF: No Dementia: No Diabetes: No GI Disorders: Yes (acid reflux) Disorders: No HTN: Yes Hypercholesterolemia: Yes Liver Disease: No Seizures: No Thyroid Disease: No - Surgical History Orthopedic Surgery: Yes (foot sx x2) - Immunization History Immunization Up to Date: No - Psycho Social/Smoking Cessation Hx Smoking History: Never smoked Have you smoked in the past 12 months: No If you are a former smoker, when did you quit?: 2yrs Information on smoking cessation initiated: No Hx Alcohol Use: No Drug/Substance Use Hx: No Substance Use Type: Marijuana Hx Substance Use Treatment: No Review of Systems - Review of Systems Able to Perform ROS?: Yes Constitutional: No: Chills, Fever HEENTM: No: Recent change in vision, Hearing Loss, Difficulty Swallowing Respiratory: Yes: Cough, Shortness of Breath, Wheezing Cardiac (ROS): Yes: Chest Pain (chest pressure) ABD/GI: No: Constipated, Diarrhea, Nausea, Vomiting : No: Burning, Dysuria, Discharge, Frequency, Flank Pain, Hematuria Musculoskeletal: No: Back Pain, Muscle Weakness Integumentary: No: Bruising Neurological: No: Headache, Numbness, Tingling, Dizziness *Physical Exam - Vital Signs Last Vital Signs Temp Pulse Resp BP Pulse Ox 98.1 F 70 22 H 173/93 H 91 L 03/23/19 13:52 03/23/19 13:52 03/23/19 13:52 03/23/19 13:52 03/23/19 13:52 - Physical Exam Comments: 03/23/19 14:19 Gen: well-developed, tripoding, appears to distressed Neuro: AAOX4, CN II-XII intact, FTN intact HEENT: atraumatic, normocephalic Neck: trachea midline, supple CV: regular rate, regular rhythm Pulm: diffuse expiratory wheezing Abd: soft, non-distended, non-tender MSK: full ROM, pulses intact Extr: no edema, no deformities Skin: warm, dry ED Treatment Course - LABORATORY CBC & Chemistry Diagram: 03/23/19 14:30 03/23/19 14:11 Medical Decision Making - Medical Decision Making 03/23/19 14:21 Concern for COPD exacerbation v PNA v ACS. - CBC, CMP - EKG, trop - CXR port - Duonebs, Salumedrol 125 - symptoms improved with Duonebs - continue to monitor 03/23/19 15:30 EKG normal sinus, normal rate. 03/23/19 16:04 Labs reviewed, no WBC elevation, CXR without consolidation, low suspicion for PNA. 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 Discharge - Discharge Information Problems reviewed: Yes Clinical Impression/Diagnosis: COPD exacerbation Condition: Stable Disposition: HOME - Admission No - Additional Discharge Information Prescriptions: Prednisone [Deltasone] 40 mg PO DAILY 5 Days #10 tablet - Follow up/Referral Referrals: Deborah Natarajan MD [Primary Care Provider] - - Patient Discharge Instructions Patient Printed Discharge Instructions: DI for Chronic Obstructive Pulmonary Disease Additional Instructions: You were seen with difficulty breathing. This was likely to be a flare of your COPD. Your labs and EKG were unconcerning, and your chest X ray also did not show any acute pathology. Follow up with your primary care doctor and your pattern lease inspector within one week. Return to the ED if you develop worsening chest pain or shortness of breath. - Post Discharge Activity
[2019-03-23 15:03] LABS: BASO % 1.5 % (0-2.0); EOS % 7.8 % (0-4.5); HEMATOCRIT 40.9 % (32.4-45.2); HEMOGLOBIN 13.9 GM/dL (10.7-15.3); LYMPH % 38.2 % (8-40); MCH 32.8 pg (25.7-33.7); MEAN CELL VOLUME 96.3 fl (80-96); MEAN PLT VOLUME 9.8 fl (7.5-11.1); MONO % 7.4 % (3.8-10.2); NEUT % 45.1 % (42.8-82.8); PLATELET COUNT 202 K/MM3 (134-434); RBC 4.25 M/mm3 (3.60-5.2); RDW 13.1 % (11.6-15.6); WHITE BLOOD COUNT 9.6 K/mm3 (4.0-10.0)
[2019-03-23 15:29] LABS: ALBUMIN 3.6 g/dl (3.4-5.0); BILIRUBIN,TOTAL 0.3 mg/dL (0.2-1); BLOOD UREA NITROGEN 20.2 mg/dL (7-18); CALCIUM 9.4 mg/dL (8.5-10.1); CREATININE 0.7 mg/dL (0.55-1.3); POTASSIUM 3.5 mmol/L (3.5-5.1); TOT PROT 6.9 g/dl (6.4-8.2)
--- NOTE | 2019-03-23 15:30 | PDOC ---
Documentation entered by Carlos Escobedo SCRIBE, acting as scribe for Vincenzo Navas MD. Vincenzo Navas MD: This documentation has been prepared by the [employer] high Daniel, SCRIBE, under my direction and personally reviewed by me in its entirety. I confirm that the documentation accurately reflects all work, treatment, procedures, and medical decision making performed by me. Attending Attestation - Resident Resident Name: Jj Sanon - ED Attending Attestation I have performed the following: I have examined & evaluated the patient, The case was reviewed & discussed with the resident, I agree w/resident's findings & plan, Exceptions are as noted - HPI HPI: 03/23/19 14:49 The patient is a 68 year old female with a past medical history of asthma ( never intubated), COPD, HTN, HLD, and AAA s/p repair here today for evaluation of shortness of breath and cough. The patient reports that her cough began last night and notes that it is productive of foam. She states that this similar to prior asthma exacerbations but worse now and is not getting better with COPD medication or inhaler. She also notes a feeling of an elephant on my chest which she states makes it hard for her to take deep breaths. Patient denies headache, lightheadedness. Denies fever, chills. Denies nausea, vomiting, diarrhea, abdominal pain. Allergies: aoxicillins, clavulanic acid, clindamycin, doxycycline PCP: Deborah Natarajan - Physicial Exam PE: 03/23/19 15:39 Vitals: Triage Vital signs reviewed General Appearance: No acute distress, well nourished well developed, Head: Atraumatic, Neck: Supple; no Nucal rigidity Chest Wall: Nontender Cardiac: Regular rate and rhythym, no murmurs, no rubs, no gallops, Lungs: Mild end expiratory wheeze Abdomen: Soft, non distended, normal bowel sounds, non tender to palpation Extremities: Full range of motion to all extremities, no cyanosis, clubbing, or edema Skin: Warm and dry, no rashes or lesions, no rash, no petechiae Psych: Normal mood, normal affect - Medical Decision Making No fever no white count no evidence of pneumonia on chest x-ray likely uncomplicated COPD exacerbation at this point. 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
[2019-03-23 16:11] VITALS: BP 135/74; PULSE 79
--- NOTE | 2019-03-24 12:12 | EKG ---
Test Reason : Blood Pressure : / mmHG Vent. Rate : 067 BPM Atrial Rate : 067 BPM P-R Int : 172 ms QRS Dur : 082 ms QT Int : 438 ms P-R-T Axes : 046 031 051 degrees QTc Int : 462 ms NORMAL SINUS RHYTHM NONSPECIFIC ST ABNORMALITY ABNORMAL ECG WHEN COMPARED WITH ECG OF 24-DEC-2013 09:46, QT HAS LENGTHENED Confirmed by MARICEL SANCHEZ, PIEDAD ([id number]) on 03/24/2019 12:11:52 PM Referred By: Confirmed By:PIEDAD CONNELLY MD
== END 2019-03-23 16:12 | disposition home or self-care (01) ==
LOC: JER 13:50
PROC: 3E0F7GC Introduction of Other Therapeutic Substance into Respiratory Tract, Via Natural or Artificial Opening (ICD-10-PCS; principal; 2019-03-23)
PROC: 3E0333Z Introduction of Anti-inflammatory into Peripheral Vein, Percutaneous Approach (ICD-10-PCS; 2019-03-23)
DX: J44.1 Chronic obstructive pulmonary disease with (acute) exacerbation (principal); I10 Essential (primary) hypertension; E78.5 Hyperlipidemia, unspecified; Z86.79 Personal history of other diseases of the circulatory system; Z98.890 Other specified postprocedural states; Z88.0 Allergy status to penicillin; Z88.1 Allergy status to other antibiotic agents; J45.998 Other asthma
CPT/HCPCS: 36415; 71045-TC-FY; 80053; 84484; 85025; 93005; 93010; 94640; 96374; 99282-25

== ENCOUNTER 2019-04-09 23:28 | Emergency (ER) | payer OTHER ==
[2019-04-09 23:33] VITALS: TEMP 98.2; BMI 29.2
[2019-04-09] MEDS ORDERED: ALBUTEROL SO4 2.5/IPRATROPIUM 0.5 INH SOL 3 ML VIAL.NEB. NEB ONE ×2 (23:35→23:50)
--- NOTE | 2019-04-09 23:38 | PDOC ---
History of Present Illness - General Chief Complaint: Shortness of Breath Stated Complaint: DIFFICULTY BREATHING Time Seen by Provider: 04/09/19 23:38 - History of Present Illness Initial Comments: 04/09/19 23:38 Ms. Cassidy is a 68 yo female w/ pmh of AAA s/p repair, HTN, HLD, and COPD who presents for evaluation of shortness of breath for the last 2 hours. Patient reports she was cooking dinner with family when symptoms started. Denies other complaints at this time. Took breathing treatment at home however reports that it did not improve symptoms; prompting visit. The patient denies chest pain, headache and dizziness. Denies fever, chills, nausea, vomit, diarrhea and constipation. Denies dysuria, frequency, urgency and hematuria. Past History - Past Medical History Allergies/Adverse Reactions: Allergies Allergy/AdvReac Type Severity Reaction Status Date / Time amoxicillin [From Augmentin] Allergy "severe Verified 04/09/19 23:33 nausea" clavulanic acid Allergy "severe Verified 04/09/19 23:33 [From Augmentin] nausea" clindamycin [From Cleocin] Allergy "severe Verified 04/09/19 23:33 nausea" doxycycline Allergy "severe Verified 04/09/19 23:33 nausea" Home Medications: Ambulatory Orders Atenolol [Tenormin -] 50 mg PO DAILY 12/15/17 Atorvastatin Ca [Lipitor] 40 mg PO HS 12/15/17 Biotin 1 mg PO DAILY 12/15/17 Calcium Carbonate [Calcium] 500 mg PO DAILY 12/15/17 Hydrochlorothiazide [Hctz -] 25 mg PO DAILY 12/15/17 Losartan Potassium 50 mg PO DAILY 12/15/17 Multivitamin/Iron/Folic Acid [Centrum Adults Tablet] 1 each PO DAILY 12/15/17 [place]-3 Fatty Acids [[place]-3] 1,000 mg PO DAILY 12/15/17 Prednisone [Deltasone] 40 mg PO DAILY 5 Days #10 tablet 03/23/19 Anemia: No Asthma: No Cancer: No Cardiac Disorders: No CVA: No COPD: No CHF: No Dementia: No Diabetes: No GI Disorders: Yes (acid reflux) Disorders: No HTN: Yes Hypercholesterolemia: Yes Liver Disease: No Seizures: No Thyroid Disease: No - Surgical History Orthopedic Surgery: Yes (foot sx x2) - Immunization History Immunization Up to Date: No - Psycho Social/Smoking Cessation Hx Smoking History: Never smoked Have you smoked in the past 12 months: No If you are a former smoker, when did you quit?: 2yrs Information on smoking cessation initiated: No Hx Alcohol Use: No Drug/Substance Use Hx: No Substance Use Type: Marijuana Hx Substance Use Treatment: No Review of Systems - Review of Systems Comments:: 04/09/19 23:51 GENERAL/CONSTITUTIONAL: No fever or chills. No weakness. HEAD, EYES, EARS, NOSE AND THROAT: No change in vision. No ear pain or discharge. No sore throat. CARDIOVASCULAR: +Shortness of breath as described. No chest pain RESPIRATORY: No cough, wheezing, or hemoptysis. GASTROINTESTINAL: No nausea, vomiting, diarrhea or constipation. GENITOURINARY: No dysuria, frequency, or change in urination. MUSCULOSKELETAL: No joint or muscle swelling or pain. No neck or back pain. SKIN: No rash NEUROLOGIC: No headache, vertigo, loss of consciousness, or change in strength/ sensation. ENDOCRINE: No increased thirst. No abnormal weight change HEMATOLOGIC/LYMPHATIC: No anemia, easy bleeding, or history of blood clots. ALLERGIC/IMMUNOLOGIC: No hives or skin allergy. *Physical Exam - Vital Signs Last Vital Signs Temp Pulse Resp BP Pulse Ox 98.2 F 79 33 H 135/71 89 L 04/09/19 23:31 04/09/19 23:31 04/09/19 23:31 04/09/19 23:31 04/09/19 23:31 - Physical Exam Comments: 04/09/19 23:52 GENERAL: Awake, alert, and fully oriented, in no acute distress HEAD: No signs of trauma, normocephalic, atraumatic EYES: PERRLA, EOMI, sclera anicteric, conjunctiva clear ENT: Auricles normal inspection, hearing grossly normal, nares patent, oropharynx clear without exudates. Moist mucosa NECK: Normal ROM, supple, no lymphadenopathy, JVD, or masses LUNGS: +Diffuse wheezes appreciated. No distress, speaks full sentences. HEART: Regular rate and rhythm, normal S1 and S2, no murmurs, rubs or gallops, peripheral pulses normal and equal bilaterally. ABDOMEN: Soft, nontender, normoactive bowel sounds. No guarding, no rebound. No masses EXTREMITIES: Normal inspection, Normal range of motion, no edema. No clubbing or cyanosis. NEUROLOGICAL: Cranial nerves II through XII grossly intact. Normal speech, normal gait, no focal sensorimotor deficits SKIN: Warm, Dry, normal turgor, no rashes or lesions noted. ED Treatment Course - LABORATORY CBC & Chemistry Diagram: 04/10/19 00:05 04/10/19 00:05 Medical Decision Making - Medical Decision Making 04/10/19 01:27 Ms. Cassidy is a 68 yo female w/ pmh as described who presents for evaluation of symptoms concerning for COPD exacerbation vs. pulmonary process vs. ACS. Patient evaluated with labs as below as well as EKG and CXR. EKG normal sinus, CXR unchanged from previous. Labs as below significant for hypokalemia; otherwise grossly wnl. Potassium given IV and oral. Patient reporting relief from symptoms at this time following duonebs and oral steroids. No concern for acute process at this time. Will discharge to home for further outpatient follow -up as needed. Laboratory Results - last 24 hr 04/10/19 04/10/19 00:05 00:05 WBC 10.9 H RBC 4.44 Hgb 14.4 Hct 42.8 MCV 96.5 H MCH 32.5 MCHC 33.7 RDW 13.4 Plt Count 206 MPV 9.5 Absolute Neuts (auto) 5.5 Neutrophils % 49.9 Lymphocytes % 32.7 Monocytes % 8.7 Eosinophils % 7.6 H Basophils % 1.1 Nucleated RBC % 0 Sodium 139 Potassium 2.7 L* Chloride 103 Carbon Dioxide 25 Anion Gap 12 BUN 17.3 Creatinine 0.8 Est GFR (CKD-EPI)AfAm 87.18 Est GFR (CKD-EPI)NonAf 75.22 Random Glucose 124 H Calcium 9.8 Total Bilirubin 0.4 AST 18 ALT 30 Alkaline Phosphatase 58 Creatine Kinase 75 Troponin I < 0.02 Total Protein 7.1 Albumin 3.9 Discharge - Discharge Information Problems reviewed: Yes Clinical Impression/Diagnosis: COPD exacerbation Disposition: HOME - Follow up/Referral - Patient Discharge Instructions Patient Printed Discharge Instructions: DI for Chronic Obstructive Pulmonary Disease Additional Instructions: You were evaluated today in the ER for your COPD exacerbation. We treated you with breathing treatments and steroids and your symptoms improved. We also found that you had low potassium which we replaced. Please follow-up outpatient with primary care provider for further evaluation. Return to ER if any further shortness of breath, fever, chills, or other concerning symptoms. - Post Discharge Activity
[2019-04-09] MEDS ORDERED: DEXAMETHASONE 4 MG TABLET (FP) PO ONE (23:47)
[2019-04-09] MEDS: ALBUTEROL SO4 2.5/IPRATROPIUM 0.5 INH SOL 3 ML VIAL.NEB. NEB SCH ×3 (23:48→23:55)
[2019-04-09] MEDS ORDERED: DEXAMETHASONE SOD PHOSPHATE 10 MG/1 ML VIAL ONE (23:50)
[2019-04-10 00:21] LABS: BASO % 1.1 % (0-2.0); EOS % 7.6 % (0-4.5); HEMATOCRIT 42.8 % (32.4-45.2); HEMOGLOBIN 14.4 GM/dL (10.7-15.3); LYMPH % 32.7 % (8-40); MCH 32.5 pg (25.7-33.7); MCHC 33.7 g/dl (32.0-36.0); MEAN CELL VOLUME 96.5 fl (80-96); MEAN PLT VOLUME 9.5 fl (7.5-11.1); MONO % 8.7 % (3.8-10.2); NEUT % 49.9 % (42.8-82.8); PLATELET COUNT 206 K/MM3 (134-434); RBC 4.44 M/mm3 (3.60-5.2); RDW 13.4 % (11.6-15.6); WHITE BLOOD COUNT 10.9 K/mm3 (4.0-10.0)
[2019-04-10] MEDS: ALBUTEROL SO4 2.5/IPRATROPIUM 0.5 INH SOL 3 ML VIAL.NEB. NEB SCH (00:31)
--- NOTE | 2019-04-10 00:46 | PDOC ---
Attending Attestation - Resident Resident Name: Asad Umanzor - ED Attending Attestation I have performed the following: I have examined & evaluated the patient, The case was reviewed & discussed with the resident, I agree w/resident's findings & plan - HPI HPI: 04/10/19 04:23 Pt comes with chest pain and SOB. Ongoing for over 24 hrs. Pt has asthma/wheezing - Physicial Exam PE: 04/10/19 04:24 Agree with resident exam. Normal exam. Lungs patchy wheeze and heart RRR abd nt nd 04/10/19 04:26 Pt's lung exam improved with duonebs - Medical Decision Making 04/10/19 04:25 K+ low; pt will be repleted in the ER. Home with PMD follow up. Labs normal EKG normal CXR normal 04/10/19 04:26 Stable for discharge Heart Score/ECG Review - ECG Intrepretation Rhythm: Regular Rhythm - Conrad Conrad: Normal - P and SD Prominent R with upright T in V1 (true posterior DE): No Delta Wave(s) Present: No WPW: No - QRS Poor R Wave Progression: No Q Wave Present: No - ST and T Early Repolarization: No Non Specific ST-T Wave changes: No - ECG Impressions Normal ECG: Yes Non-specific ST Elevation: No Ischemic Changes: No Bradycardia: No Torsades sayra Pointes: No WPW: No
[2019-04-10 00:56] LABS: ALBUMIN 3.9 g/dl (3.4-5.0); ALK PHOS 58 U/L (45-117); ANION GAP 12 MMOL/L (8-16); BILIRUBIN,TOTAL 0.4 mg/dL (0.2-1); BLOOD UREA NITROGEN 17.3 mg/dL (7-18); CALCIUM 9.8 mg/dL (8.5-10.1); CHLORIDE 103 mmol/L (98-107); CO2 25 mmol/L (21-32); CREATININE 0.8 mg/dL (0.55-1.3); GLUCOSE,RANDOM 124 mg/dL (74-106); SGOT/AST 18 U/L (15-37); SGPT/ALT 30 U/L (13-61); SODIUM 139 mmol/L (136-145); TOT PROT 7.1 g/dl (6.4-8.2)
[2019-04-10] MEDS ORDERED: MAGNESIUM SULF 50% (8.12 MEQ/2 ML-1 GM VIAL) IVPB ONE (00:59)
[2019-04-10] MEDS ORDERED: POTASSIUM CHLORIDE TABS 20 MEQ TABLET.ER (FP) PO ONE ×2 (00:59→01:01)
[2019-04-10 01:01] LABS: POTASSIUM 2.7 mmol/L (3.5-5.1)
[2019-04-10] MEDS ORDERED: MAGNESIUM 1GM/D5W - 2 GM/200 ML IVPB IVPB ONE (01:09)
[2019-04-10] MEDS ORDERED: KCL 10 MEQ IVPB 10 MEQ/100 ML INFUS.BAG IVPB SCH (01:30)
[2019-04-10 02:09] VITALS: BP 133/86; PULSE 60
--- NOTE | 2019-04-10 14:45 | EKG ---
Test Reason : Blood Pressure : / mmHG Vent. Rate : 076 BPM Atrial Rate : 076 BPM P-R Int : 170 ms QRS Dur : 084 ms QT Int : 406 ms P-R-T Axes : 043 043 050 degrees QTc Int : 456 ms NORMAL SINUS RHYTHM NONSPECIFIC ST ABNORMALITY ABNORMAL ECG WHEN COMPARED WITH ECG OF 23-MAR-2019 15:07, NO SIGNIFICANT CHANGE WAS FOUND Confirmed by PIEDAD CONNELLY MD ([id number]) on 04/10/2019 2:45:23 PM Referred By: Confirmed By:PIEDAD CONNELLY MD
== END 2019-04-10 02:19 | disposition home or self-care (01) ==
LOC: JER 23:28
PROC: 3E033GC Introduction of Other Therapeutic Substance into Peripheral Vein, Percutaneous Approach (ICD-10-PCS; principal; 2019-04-09)
PROC: 3E0F7GC Introduction of Other Therapeutic Substance into Respiratory Tract, Via Natural or Artificial Opening (ICD-10-PCS; 2019-04-09)
DX: J44.1 Chronic obstructive pulmonary disease with (acute) exacerbation (principal); E87.6 Hypokalemia; I10 Essential (primary) hypertension; E78.5 Hyperlipidemia, unspecified; K21.9 Gastro-esophageal reflux disease without esophagitis; Z86.79 Personal history of other diseases of the circulatory system
CPT/HCPCS: 36415; 71045-TC-FY; 80053; 82550; 84484; 85025; 93005; 93010; 94640; 96374; 99284-25

== ENCOUNTER 2023-01-30 23:23 | Emergency (ER) | payer OTHER ==
[2023-01-30 23:28] VITALS: TEMP 98.5; BMI 29.7
[2023-01-30] MEDS ORDERED: ALBUTEROL SO4 2.5/IPRATROPIUM 0.5 INH SOL 3 ML VIAL.NEB. NEB ONE ×2 (23:30→23:44)
[2023-01-30] MEDS ORDERED: methylPREDNISolone NA SUCC 125 MG/2 ML VIAL IVPUSH ONE (23:32)
[2023-01-30] MEDS ORDERED: methylPREDNISolone NA SUCC 125 MG/2 ML VIAL ONE (23:43)
[2023-01-30] MEDS ORDERED: ONDANSETRON 4 MG/2 ML VIAL ONE (23:44)
[2023-01-30] MEDS: ALBUTEROL SO4 2.5/IPRATROPIUM 0.5 INH SOL 3 ML VIAL.NEB. NEB SCH (23:56)
[2023-01-31] MEDS ORDERED: FAMOTIDINE 20 MG/50 ML IVPB 20 MG/50 ML MG IVPB ONE ×2 (00:05→01:41)
[2023-01-31] MEDS: ALBUTEROL SO4 2.5/IPRATROPIUM 0.5 INH SOL 3 ML VIAL.NEB. NEB SCH ×4 (00:15→01:00)
[2023-01-31 00:56] LABS: HEMATOCRIT 44.3 % (32.4-45.2); MCH 31.6 pg (25.7-33.7); MEAN CELL VOLUME 93.1 fl (80-96); MEAN PLT VOLUME 10.2 fl (7.5-11.1); PLATELET COUNT 241 10^3/uL (134-434); RBC 4.75 M/mm3 (3.60-5.2); RDW 13.2 % (11.6-15.6); WHITE BLOOD COUNT 11.8 K/mm3 (4.0-10.0)
[2023-01-31 01:02] VITALS: BP 118/69; PULSE 60; RESP 18
[2023-01-31 01:07] LABS: VENOUS O2 SATURATION 31.4 % (70-80); VENOUS PCO2 30.5 mmHg (38-52); VENOUS PH 7.541 (7.310-7.410)
[2023-01-31 01:32] LABS: BLOOD UREA NITROGEN 17.1 mg/dL (7-18); CALCIUM 9.4 mg/dL (8.5-10.1)
[2023-01-31 01:35] LABS: CREATININE 0.9 mg/dL (0.55-1.3); PHOSPHOROUS 2.8 mg/dL (2.5-4.9)
[2023-01-31 01:40] LABS: LACTIC ACID 2.3 mmol/L (0.4-2.0)
[2023-01-31] MEDS ORDERED: ONDANSETRON 4 MG/2 ML VIAL IVPB ONE (01:43)
== END 2023-01-31 01:54 | disposition home or self-care (01) ==
LOC: FER 23:23
PROC: 3E033GC Introduction of Other Therapeutic Substance into Peripheral Vein, Percutaneous Approach (ICD-10-PCS; 2023-01-30)
PROC: 3E0F7GC Introduction of Other Therapeutic Substance into Respiratory Tract, Via Natural or Artificial Opening (ICD-10-PCS; principal; 2023-01-31)
PROC: 3E033GC Introduction of Other Therapeutic Substance into Peripheral Vein, Percutaneous Approach (ICD-10-PCS; 2023-01-31)
PROC: 3E033GC Introduction of Other Therapeutic Substance into Peripheral Vein, Percutaneous Approach (ICD-10-PCS; 2023-01-31)
DX: J44.1 Chronic obstructive pulmonary disease with (acute) exacerbation (principal); R06.02 Shortness of breath; R11.0 Nausea; Z20.822 Contact with and (suspected) exposure to COVID-19
CPT/HCPCS: 0241U-QW; 36415; 71045-TC-FY; 80053; 82550; 82803; 83605; 83735; 84100; 84484; 85027; 93005; 99285-25